=== PATIENT | female | born 1950 | race Caucasian/White ===

== ENCOUNTER → 2021-11-02 | Outpatient (CLI) | payer MEDICARE, OTHER | END | disposition home or self-care (01) | LOC: CPPFTMAIN 13:31 | PROVIDERS: ATTEND Family Medicine | DX: R06.00 Dyspnea, unspecified (principal) | CPT/HCPCS: 94060; 94726; 94729 ==

== ENCOUNTER → 2022-01-06 | Outpatient (CLI) | payer MEDICARE, OTHER ==
--- NOTE | 2022-01-06 11:55 | BD ---
EXAMINATION TYPE: Axial Bone Density DATE OF EXAM: 01/06/2022 COMPARISON: NONE CLINICAL HISTORY: 71 year old Female. ICD-10 CODE: Z13.820 screening osteoporosis Height: 62 Weight: 240.1 FRAX RISK QUESTIONS: Alcohol (3 or more units per day): no Family History (Parent hip fracture): no Glucocorticoids (More than 3mos): no (Ex: prednisone, prednisolone, methylprednisolone, dexamethasone, and hydrocortisone). History of Fracture in Adulthood: no Secondary Osteoporosis: 1. Type 1 Diabetes: no 2. Hyperthyroidism: no 3. Menopause before 45: yes 4. Malnutrition: no 5. Chronic liver disease: no Rheumatoid Arthritis: no Current Tobacco Use: yes RISK FACTORS HISTORY OF: Surgery to Spine/Hip(right/left)/Wrist (right/left): no Family History of Osteoporosis: no Active: no Diet low in dairy products/other sources of calcium: yes Postmenopausal woman: yes Lost more than 2 inches in height since high school: no MEDICATIONS: Additional History: EXAM MEASUREMENTS: Bone mineral densitometry was performed using the [employer]AR[employer] System. Bone mineral density as measured about the Lumbar spine is: ----- L1-L4(G/cm2): 1.289 T Score Values are as follows: ----- L1: 0.8 ----- L2: 0.3 ----- L3: 0.2 ----- L4: 1.8 ----- L1-L4: 0.9 Bone mineral density : baseline Bone mineral density about the R hip (g/cm2): 0.880 Bone mineral density about the L hip (g/cm2): 0.877 T Score values are as follows: -----R Neck: -1.1 -----L Neck: -1.2 -----R Total: 0.2 -----L Total: 0.1 Bone mineral density : baseline FRAX%s: The graph provided illustrates a 7.9% chance for a major osteoporotic fx and a 1.4% chance fo r the hips probability for fx in 10 years time. IMPRESSION: Osteopenia (T Score between -2.5 and -1). There is slightly increased risk of fracture and the patient may be considered for treatment. Re-Screen 2-5 years. NOTE: T-SCORE=SD OF THE YOUNG ADULT MEAN.
== END | disposition home or self-care (01) ==
LOC: RADBDWWP 10:49
PROVIDERS: ATTEND Family Medicine
DX: M85.80 Other specified disorders of bone density and structure, unspecified site (principal)
CPT/HCPCS: 77080

== ENCOUNTER 2022-05-03 17:06 | Inpatient (IN) | payer MEDICARE, OTHER ==
[2022-05-03] MEDS ORDERED: IPRATROPIUM-ALBUTEROL 3 ML NEB INHALATION STA (17:11)
[2022-05-03] MEDS ORDERED: methylPREDNISolone SOD SUCCI 125 MG/2 ML VIAL IV STA (17:11)
[2022-05-03] MEDS: MAGNESIUM SULFATE-D5W PMX 1 GM in DEXTROSE/WATER 1 100ML.BAG IVPB SCH ×2 (17:25→19:38)
[2022-05-03] MEDS ORDERED: DILTIAZEM 5 MG/ML 5 ML VIAL IVP STA (18:38)
[2022-05-03 18:39] LABS: Basophils % (A) 1 %; Eosinophils % (A) 0 %; HCT 51.7 % (34.0-46.0); HGB 17.4 gm/dL (11.4-16.0); Lymphocytes # (A) 0.8 k/uL (1.0-4.8); Lymphocytes % (A) 11 %; MCH 32.6 pg (25.0-35.0); MCHC 33.7 g/dL (31.0-37.0); MCV 96.6 fL (80.0-100.0); Mean Platelet Volume 9.3; Monocytes # (A) 0.4 k/uL (0-1.0); Monocytes % (A) 6 %; Neutrophils # (A) 5.5 k/uL (1.3-7.7); Neutrophils % (A) 80 %; Platelet Count 152 k/uL (150-450); RBC 5.35 m/uL (3.80-5.40); RDW 13.5 % (11.5-15.5); WBC 6.9 k/uL (3.8-10.6)
[2022-05-03] MEDS ORDERED: DILTIAZEM 125 MG in SODIUM CHLORIDE 0.9% 100 ML IV SCH (18:45)
[2022-05-03 19:01] LABS: INR 1.1 (<1.2); Partial Thromboplastin Time 26.7 sec (22.0-30.0); Prothrombin Time 11.4 sec (9.0-12.0)
--- NOTE | 2022-05-03 19:23 | XR ---
EXAMINATION TYPE: XR chest 1V portable DATE OF EXAM: 05/03/2022 7:08 PM COMPARISON: None TECHNIQUE: XR chest 1V portable Frontal view of the chest. CLINICAL INDICATION:Female, 71 years old with history of sob; FINDINGS: Lungs/Pleura: There is no evidence of pleural effusion, focal consolidation, or pneumothorax. Pulmonary vascularity: Unremarkable. Heart/mediastinum: Cardiomediastinal silhouette is prominent in size. Musculoskeletal: No acute osseous pathology. IMPRESSION: Right lower lobe airspace opacities could represent atelectasis versus developing pneumonia. Clinical correlation advised..
[2022-05-03 20:04] LABS: Albumin 3.9 g/dL (3.5-5.0); Calcium 8.8 mg/dL (8.4-10.2); Total Bilirubin 0.7 mg/dL (0.2-1.3)
[2022-05-03 20:06] LABS: Potassium 4.4 mmol/L (3.5-5.1)
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
[2022-05-03] MEDS ORDERED: NALOXONE 0.4 MG/ML 1 ML VIAL IVP PRN (20:35)
[2022-05-03] MEDS ORDERED: ACETAMINOPHEN TAB 325 MG TAB PO PRN (20:35)
[2022-05-03] MEDS ORDERED: ASPIRIN 81 MG PO STA (20:40)
[2022-05-03] MEDS ORDERED: AZITHROMYCIN 500 MG in SODIUM CHLORIDE 0.9% 250 ML IVPB STA (20:45)
[2022-05-03] MEDS: METOPROLOL SUCCINATE (ER) 25 MG TAB.ER.24H PO SCH (21:06)
[2022-05-03] MEDS: APIXABAN 5 MG TAB PO SCH (22:17)
[2022-05-03] MEDS: ATORVASTATIN 20 MG TAB PO SCH (22:19)
[2022-05-03] MEDS: IPRATROPIUM-ALBUTEROL 3 ML NEB INHALATION SCH (23:35)
[2022-05-04] MEDS: methylPREDNISolone SOD SUCCI 125 MG/2 ML VIAL IV SCH ×5 (00:30→23:08)
[2022-05-04] MEDS: IPRATROPIUM-ALBUTEROL 3 ML NEB INHALATION SCH ×6 (02:36→23:46)
[2022-05-04] MEDS: APIXABAN 5 MG TAB PO SCH ×2 (08:24→20:33)
[2022-05-04] MEDS: METOPROLOL SUCCINATE (ER) 50 MG TAB.ER.24H PO SCH (08:24)
[2022-05-04] MEDS ORDERED: ASPIRIN 325 MG TAB PO SCH (09:00)
[2022-05-04] MEDS ORDERED: amLODIPine 5 MG TAB PO SCH (09:00)
[2022-05-04] MEDS ORDERED: FUROSEMIDE 40 MG TAB PO SCH (09:00)
[2022-05-04] MEDS ORDERED: lisinopriL 20 MG TAB PO SCH (09:00)
[2022-05-04 10:53] LABS: Chol/HDL Ratio 2.72 Ratio; LDL Cholesterol,Calculated 53.1 mg/dL (0.0-131.0); VLDL Calculation 12.74 mg/dL (5.00-40.00)
--- NOTE | 2022-05-04 11:20 | P.CRDCN ---
History of Present Illness History of present illness: HISTORY OF PRESENT ILLNESS: This is a 71-year-old female with a past medical history significant for COPD, hypertension, hyperlipidemia, and atrial fibrillation. Patient follows with a Dr. Calzada in [place]. We have been asked to see the patient in consultation for A. fib with RVR. Patient examined at the bedside. Patient presented to the hospital the chief complaint of shortness of breath. She is admitted to the hospital secondary to COPD exacerbation. Upon admission, the patient was found to be in A. fib with RVR. The patient was placed on a IV Cardizem drip. This morning the patient remains in atrial fibrillation with controlled ventricular rates. Her Cardizem drip has been discontinued. She denies chest pain or pressure. She continues to report shortness of breath this morning. * EKG reveals A. fib with RVR * Chest xray right lower lobe airspace opacities could represent atelectasis versus developing pneumonia. * Laboratory data: WBC 6.9. Hemoglobin 17.4. Platelet count 152. Indium 141. Potassium 4.4. BUN 20. Creatinine 1.21. Troponin 0.074. 0.073. 0.047. ProBNP 496. * Current home cardiac medications include Eliquis 5mg BID, Lasix 40 mg daily, amlodipine 5 mg daily, metoprolol succinate 50 mg in the morning and 25 mg at night, lisinopril 40 mg daily, and simvastatin 40mg at HS REVIEW OF SYSTEMS: At the time of my exam: CONSTITUTIONAL: Denies fever or chills. HEENT: Denies blurred vision, vision changes, or eye pain. Denies hemoptysis CARDIOVASCULAR: Denies chest pain. Denies orthopnea. Denies PND. Denies palpitations RESPIRATORY: Denies shortness of breath. GASTROINTESTINAL: Denies abdominal pain. Denies nausea or vomiting. HEMATOLOGIC: Denies bleeding disorders. GENITOURINARY: Denies any blood in urine. SKIN: Denies pruitis. Denies rash. PHYSICAL EXAM: VITAL SIGNS: Reviewed. GENERAL: Well-developed in no acute distress. HEENT: Head is normocephalic. Pupils are equal, round. Sclerae anicteric. Mucous membranes of the mouth are moist. Neck supple. No JVD or thyromegaly LUNGS: Respirations even and unlabored. Lungs diminished with mild expiratory wheezing HEART: Irregular rate and rhythm. S1 and S2 heard. ABDOMEN: Soft. Nondistended. Nontender. EXTREMITIES: Normal range of motion. No clubbing or cyanosis. Peripheral pulses intact. No lower extremity edema NEUROLOGIC: Awake and alert. Oriented x 3. ASSESSMENT: Shortness of breath Acute COPD exacerbation Atrial fibrillation with RVR, unclear if paroxysmal or persistent, suspect persistent Hypertension Hyperlipidemia Nicotine dependence PLAN: Obtain 2-D echo to assess cardiac structure and function Resume home cardiac medications Discontinue IV Cardizem Continue telemetry monitoring Further recommendations pending patient's course Nurse practitioner note has been reviewed by physician. Signing provider agrees with the documented findings, assessment, and plan of care. Past Medical History Past Medical History: Atrial Fibrillation, COPD, Hyperlipidemia, Hypertension History of Any Multi-Drug Resistant Organisms: None Reported Past Surgical History: Tubal Ligation Past Anesthesia/Blood Transfusion Reactions: No Reported Reaction Past Psychological History: No Psychological Hx Reported Smoking Status: Current every day smoker Past Alcohol Use History: None Reported - Past Family History Father Family Medical History: Cancer Mother Family Medical History: Coronary Artery Disease (CAD), CVA/TIA Medications and Allergies Home Medications Medication Instructions Recorded Confirmed Type Albuterol Sulfate [Ventolin HFA] 2 puff INHALATION RT-Q4H PRN 05/03/22 05/03/22 History Apixaban [Eliquis] 5 mg PO BID 05/03/22 05/03/22 History Furosemide [Lasix] 40 mg PO DAILY 05/03/22 05/03/22 History Metoprolol Succinate (ER) [Toprol 50 mg PO DAILY 05/03/22 05/03/22 History Xl] Metoprolol Succinate [Metoprolol 25 mg PO HS 05/03/22 05/03/22 History Succinate ER] Simvastatin [Zocor] 40 mg PO HS 05/03/22 05/03/22 History amLODIPine [Norvasc] 5 mg PO DAILY 05/03/22 05/03/22 History lisinopriL 40 mg PO DAILY 05/03/22 05/03/22 History Allergies Allergy/AdvReac Type Severity Reaction Status Date / Time fenofibrate Allergy Unknown Verified 05/03/22 17:42 Physical Exam Vitals: Vital Signs Temp Pulse Pulse Pulse Resp BP BP 05/04/22 08:20 98.2 F 95 20 116/70 05/04/22 03:17 98 F 67 18 05/04/22 02:48 82 05/04/22 02:39 70 05/04/22 00:59 78 26 H 05/03/22 23:50 76 05/03/22 23:38 69 05/03/22 22:41 97.8 F 84 25 H 05/03/22 21:53 05/03/22 21:51 05/03/22 21:25 05/03/22 21:18 93 20 90/45 05/03/22 20:46 95 20 105/45 05/03/22 19:39 05/03/22 19:36 107 H 20 104/45 05/03/22 17:50 135 H 35 H 05/03/22 17:40 130 H 33 H 91/67 05/03/22 17:37 125 H 29 H 05/03/22 17:30 124 H 29 H 05/03/22 17:22 124 H 21 05/03/22 17:20 130/88 05/03/22 17:19 05/03/22 17:15 05/03/22 17:14 05/03/22 17:13 98.2 F 129 H 32 H 130/88 Pulse Ox FiO2 05/04/22 08:20 96 05/04/22 03:17 95 40 05/04/22 02:48 05/04/22 02:39 40 05/04/22 00:59 05/03/22 23:50 05/03/22 23:38 55 05/03/22 22:41 97 60 05/03/22 21:53 97 60 05/03/22 21:51 60 05/03/22 21:25 70 05/03/22 21:18 96 05/03/22 20:46 98 05/03/22 19:39 100 05/03/22 19:36 99 05/03/22 17:50 98 05/03/22 17:40 97 05/03/22 17:37 05/03/22 17:30 05/03/22 17:22 05/03/22 17:20 96 05/03/22 17:19 100 05/03/22 17:15 86 L 05/03/22 17:14 100 05/03/22 17:13 86 L Intake and Output 05/03/22 05/04/22 05/04/22 22:59 06:59 14:59 Intake Total 55 250 Balance 55 250 Intake: Intake, IV Titration 55 250 Amount Azithromycin 500 mg In 250 Sodium Chloride 0.9% 250 ml @ 250 mls/hr IVPB HS [facility] Rx#:[id number] Diltiazem 125 mg In 5 Sodium Chloride 0.9% 100 ml @ Per Protocol IV .Q0M [facility] Rx#:[id number] cefTRIAXone 1 gm In 50 Sodium Chloride 0.9% 50 ml @ 100 mls/hr IVPB DAILY [facility] Rx#:[id number] Other: # Voids 1 Weight 108.862 kg Results 05/03/22 18:25 05/03/22 18:58 Cardiac Enzymes 05/03/22 05/03/22 05/03/22 Range/Units 18:58 18:58 22:41 AST 62 H (14-36) U/L Troponin I 0.074 H* 0.073 H* (0.000-0.034) ng/mL 05/04/22 Range/Units 02:33 AST (14-36) U/L Troponin I 0.047 H* (0.000-0.034) ng/mL Coagulation 05/03/22 Range/Units 18:25 PT 11.4 (9.0-12.0) sec APTT 26.7 (22.0-30.0) sec CBC 05/03/22 Range/Units 18:25 WBC 6.9 (3.8-10.6) k/uL RBC 5.35 (3.80-5.40) m/uL Hgb 17.4 H (11.4-16.0) gm/dL Hct 51.7 H (34.0-46.0) % Plt Count 152 (150-450) k/uL Comprehensive Metabolic Panel 05/03/22 Range/Units 18:58 Sodium 141 (137-145) mmol/L Potassium 4.4 (3.5-5.1) mmol/L Chloride 108 H (98-107) mmol/L Carbon Dioxide 22 (22-30) mmol/L BUN 20 H (7-17) mg/dL Creatinine 1.21 H (0.52-1.04) mg/dL Glucose 129 H (74-99) mg/dL Calcium 8.8 (8.4-10.2) mg/dL AST 62 H (14-36) U/L ALT 55 H (4-34) U/L Alkaline Phosphatase 78 (38-126) U/L Total Protein 7.0 (6.3-8.2) g/dL Albumin 3.9 (3.5-5.0) g/dL Current Medications Generic Name Dose Route Start Last Admin Trade Name Freq PRN Reason Stop Dose Admin Acetaminophen 650 mg 05/03/22 20:35 Acetaminophen Tab 325 Mg Tab PO Q4HR PRN Mild Pain or Fever > 100.5 Albuterol/Ipratropium 3 ml 05/04/22 00:00 05/04/22 02:36 Ipratropium-Albuterol 3 Ml Neb INHALATION 3 ml RT-Q4H [facility] Administration Amlodipine Besylate 5 mg 05/04/22 09:00 05/04/22 08:24 Amlodipine 5 Mg Tab PO 5 mg DAILY [facility] Administration Apixaban 5 mg 05/03/22 21:00 05/04/22 08:24 Apixaban 5 Mg Tab PO 5 mg BID [facility] Administration Protocol Aspirin 325 mg 05/04/22 09:00 05/04/22 08:24 Aspirin 325 Mg Tab PO 325 mg DAILY [facility] Administration Atorvastatin Calcium 20 mg 05/03/22 21:00 05/03/22 22:19 Atorvastatin 20 Mg Tab PO 20 mg HS [facility] Administration Furosemide 40 mg 05/04/22 09:00 05/04/22 08:24 Furosemide 40 Mg Tab PO 40 mg DAILY [facility] Administration Diltiazem HCl 125 mg/ Sodium 125 mls @ 0 mls/hr 05/03/22 18:45 05/03/22 20:24 Chloride IV 5 ml/hr .Q0M [facility] 5 mls/hr Administration Protocol Per Protocol Azithromycin 500 mg/ Sodium 250 mls @ 250 mls/hr 05/04/22 21:00 Chloride IVPB 05/05/22 21:59 HS [facility] Protocol Ceftriaxone Sodium 1 gm/ 50 mls @ 100 mls/hr 05/04/22 09:00 05/04/22 08:25 Sodium Chloride IVPB 100 mls/hr DAILY [facility] Administration Protocol Lisinopril 40 mg 05/04/22 09:00 05/04/22 08:24 Lisinopril 20 Mg Tab PO 40 mg DAILY [facility] Administration Methylprednisolone Sodium Succinate 60 mg 05/04/22 00:00 05/04/22 06:16 Methylprednisolone Sod Succi 125 Mg/2 Ml Vial IV 60 mg Q6HR [facility] Administration Metoprolol Succinate 25 mg 05/03/22 21:00 05/03/22 21:06 Metoprolol Succinate (Er) 25 Mg Tab.Er.24h PO Not Given HS [facility] Metoprolol Succinate 50 mg 05/04/22 09:00 05/04/22 08:24 Metoprolol Succinate (Er) 50 Mg Tab.Er.24h PO 50 mg DAILY [facility] Administration Naloxone HCl 0.2 mg 05/03/22 20:35 Naloxone 0.4 Mg/Ml 1 Ml Vial IVP Q2M PRN Opioid Reversal Intake and Output 05/03/22 05/04/22 05/04/22 22:59 06:59 14:59 Intake Total 55 250 Balance 55 250 Intake: Intake, IV Titration 55 250 Amount Azithromycin 500 mg In 250 Sodium Chloride 0.9% 250 ml @ 250 mls/hr IVPB HS [facility] Rx#:[id number] Diltiazem 125 mg In 5 Sodium Chloride 0.9% 100 ml @ Per Protocol IV .Q0M [facility] Rx#:[id number] cefTRIAXone 1 gm In 50 Sodium Chloride 0.9% 50 ml @ 100 mls/hr IVPB DAILY [facility] Rx#:[id number] Other: # Voids 1 Weight 108.862 kg 05/03/22 18:25 05/03/22 18:58
--- NOTE | 2022-05-04 11:51 | P.HPIM ---
History of Present Illness 71-year-old pleasant female came in with compensative shortness of breath patient was on BiPAP last night patient's symptoms improved quite a bit patient on IV steroids at this time patient was evaluated by pulmonology. Patient has mildly elevated troponins patient also went into atrial fibrillation patient probably has persistent atrial fibrillation patient is presently rate controlled was on Cardizem which was discontinued and patient is presently on metoprolol. Patient is also on elect was for anticoagulation. Patient is presently in aspirin and Lanoxin usually doesn't use any oxygen at home can use to smoke little bit less than a pack of cigarettes per day patient spoke [employer] is negative chest x-ray did show some nonspecific infiltrates but not consistent with pneumonia. Patient complaining of cough without any significant sputum production. REVIEW OF SYSTEMS: CONSTITUTIONAL: No fever, no malaise, no fatigue. HEENT: No recent visual problems or hearing problems. Denied any sore throat. CARDIOVASCULAR: No chest pain, orthopnea, PND, no palpitations, no syncope. PULMONARY: no hemoptysis. GASTROINTESTINAL: No diarrhea, no nausea, no vomiting, no abdominal pain. NEUROLOGICAL: No headaches, no weakness, no numbness. HEMATOLOGICAL: Denies any bleeding or petechiae. GENITOURINARY: Denies any burning micturition, frequency, or urgency. MUSCULOSKELETAL/RHEUMATOLOGICAL: Denies any joint pain, swelling, or any muscle pain. ENDOCRINE: Denies any polyuria or polydipsia. The rest of the 14-point review of systems is negative. PHYSICAL EXAMINATION: GENERAL: The patient is alert and oriented x3, not in any acute distress. Well developed, well nourished. HEENT: Pupils are round and equally reacting to light. EOMI. No scleral icterus. No conjunctival pallor. Normocephalic, atraumatic. No pharyngeal erythema. No thyromegaly. CARDIOVASCULAR: S1 and S2 present. No murmurs, rubs, or gallops. PULMONARY: Diminished air entry with mild expiratory wheezing ABDOMEN: Soft, nontender, nondistended, normoactive bowel sounds. No palpable organomegaly. MUSCULOSKELETAL: No joint swelling or deformity. EXTREMITIES: No cyanosis, clubbing, or pedal edema. NEUROLOGICAL: Gross neurological examination did not reveal any focal deficits. SKIN: No rashes. Assessment and plan -Acute hypoxic and hypercapnic respiratory failure secondary to exacerbation patient is on nasal cannula oxygen at this time patient will continue on azithromycin but will discontinue Rocephin as there is no evidence of pneumonia pro calcitonin is within normal limits and not consistent with bacterial pneumonia. Patient with systemic strides and inhalational treatments. -Atrial fibrillation with rapid unclear rate presently rate controlled continues to be in A. fib patient probably has persistent A. fib continue with her metoprolol and anticoagulation -Mildly elevated troponin secondary to atrial fibrillation COPD exacerbation -Possible acute renal failure secondary to diuretics which will be held today. -Hyperlipidemia -Hypertension - DVT prophylaxis: Patient on anticoagulation Past Medical History Past Medical History: Atrial Fibrillation, COPD, Hyperlipidemia, Hypertension History of Any Multi-Drug Resistant Organisms: None Reported Past Surgical History: Tubal Ligation Past Anesthesia/Blood Transfusion Reactions: No Reported Reaction Past Psychological History: No Psychological Hx Reported Smoking Status: Current every day smoker Past Alcohol Use History: None Reported - Past Family History Father Family Medical History: Cancer Mother Family Medical History: Coronary Artery Disease (CAD), CVA/TIA Medications and Allergies Home Medications Medication Instructions Recorded Confirmed Type Albuterol Sulfate [Ventolin HFA] 2 puff INHALATION RT-Q4H PRN 05/03/22 05/03/22 History Apixaban [Eliquis] 5 mg PO BID 05/03/22 05/03/22 History Furosemide [Lasix] 40 mg PO DAILY 05/03/22 05/03/22 History Metoprolol Succinate (ER) [Toprol 50 mg PO DAILY 05/03/22 05/03/22 History Xl] Metoprolol Succinate [Metoprolol 25 mg PO HS 05/03/22 05/03/22 History Succinate ER] Simvastatin [Zocor] 40 mg PO HS 05/03/22 05/03/22 History amLODIPine [Norvasc] 5 mg PO DAILY 05/03/22 05/03/22 History lisinopriL 40 mg PO DAILY 05/03/22 05/03/22 History Allergies Allergy/AdvReac Type Severity Reaction Status Date / Time fenofibrate Allergy Unknown Verified 05/03/22 17:42 Physical Exam Vitals: Vital Signs Temp Pulse Pulse Pulse Resp BP BP 05/04/22 09:10 88 22 05/04/22 09:02 88 22 05/04/22 08:20 98.2 F 95 22 116/70 05/04/22 03:17 98 F 67 18 05/04/22 02:48 82 05/04/22 02:39 70 05/04/22 00:59 78 26 H 05/03/22 23:50 76 05/03/22 23:38 69 05/03/22 22:41 97.8 F 84 25 H 05/03/22 21:53 05/03/22 21:51 05/03/22 21:25 05/03/22 21:18 93 20 90/45 05/03/22 20:46 95 20 105/45 05/03/22 19:39 05/03/22 19:36 107 H 20 104/45 05/03/22 17:50 135 H 35 H 05/03/22 17:40 130 H 33 H 91/67 05/03/22 17:37 125 H 29 H 05/03/22 17:30 124 H 29 H 05/03/22 17:22 124 H 21 05/03/22 17:20 130/88 05/03/22 17:19 05/03/22 17:15 05/03/22 17:14 05/03/22 17:13 98.2 F 129 H 32 H 130/88 Pulse Ox FiO2 05/04/22 09:10 05/04/22 09:02 40 05/04/22 08:20 96 05/04/22 03:17 95 40 05/04/22 02:48 05/04/22 02:39 40 05/04/22 00:59 05/03/22 23:50 05/03/22 23:38 55 05/03/22 22:41 97 60 05/03/22 21:53 97 60 05/03/22 21:51 60 05/03/22 21:25 70 05/03/22 21:18 96 05/03/22 20:46 98 05/03/22 19:39 100 05/03/22 19:36 99 05/03/22 17:50 98 05/03/22 17:40 97 05/03/22 17:37 05/03/22 17:30 05/03/22 17:22 05/03/22 17:20 96 05/03/22 17:19 100 05/03/22 17:15 86 L 05/03/22 17:14 100 05/03/22 17:13 86 L Intake and Output 05/03/22 05/04/22 05/04/22 22:59 06:59 14:59 Intake Total 55 250 240 Balance 55 250 240 Intake: Intake, IV Titration 55 250 Amount Azithromycin 500 mg In 250 Sodium Chloride 0.9% 250 ml @ 250 mls/hr IVPB HS RAVINDRA Rx#:[id number] Diltiazem 125 mg In 5 Sodium Chloride 0.9% 100 ml @ Per Protocol IV .Q0M RAVINDRA Rx#:[id number] cefTRIAXone 1 gm In 50 Sodium Chloride 0.9% 50 ml @ 100 mls/hr IVPB DAILY RAVINDRA Rx#:[id number] Oral 240 Other: Voiding Method Bedside Commode # Voids 1 1 Weight 108.862 kg Results CBC & Chem 7: 05/03/22 18:25 05/03/22 18:58 Labs: Abnormal Lab Results - Last 24 Hours (Table) 05/03/22 05/03/22 05/03/22 Range/Units 18:25 18:58 18:58 Hgb 17.4 H (11.4-16.0) gm/dL Hct 51.7 H (34.0-46.0) % Lymphocytes # 0.8 L (1.0-4.8) k/uL Chloride 108 H (98-107) mmol/L BUN 20 H (7-17) mg/dL Creatinine 1.21 H (0.52-1.04) mg/dL Glucose 129 H (74-99) mg/dL AST 62 H (14-36) U/L ALT 55 H (4-34) U/L Troponin I 0.074 H* (0.000-0.034) ng/mL HDL Cholesterol (40.00-60.00) mg/dL Procalcitonin (0.02-0.09) ng/mL 05/03/22 05/03/22 05/04/22 Range/Units 20:36 22:41 02:33 Hgb (11.4-16.0) gm/dL Hct (34.0-46.0) % Lymphocytes # (1.0-4.8) k/uL Chloride (98-107) mmol/L BUN (7-17) mg/dL Creatinine (0.52-1.04) mg/dL Glucose (74-99) mg/dL AST (14-36) U/L ALT (4-34) U/L Troponin I 0.073 H* 0.047 H* (0.000-0.034) ng/mL HDL Cholesterol (40.00-60.00) mg/dL Procalcitonin 0.14 H (0.02-0.09) ng/mL 05/04/22 Range/Units 02:33 Hgb (11.4-16.0) gm/dL Hct (34.0-46.0) % Lymphocytes # (1.0-4.8) k/uL Chloride (98-107) mmol/L BUN (7-17) mg/dL Creatinine (0.52-1.04) mg/dL Glucose (74-99) mg/dL AST (14-36) U/L ALT (4-34) U/L Troponin I (0.000-0.034) ng/mL HDL Cholesterol 38.20 L (40.00-60.00) mg/dL Procalcitonin (0.02-0.09) ng/mL Thrombosis Risk Factor Assmnt - Choose All That Apply Any of the Below Risk Factors Present?: Yes Each Factor Represents 1 point: Abnormal pulmonary function (COPD), Obesity (BMI >25), Serious lung disease incl. pneumonia (< 1month) Other Risk Factors: Yes Each Risk Factor Represents 2 Points: Age 61-74 years, Patient confined to bed Other congenital or acquired thrombophilia - If yes, enter type in comment: No Thrombosis Risk Factor Assessment Total Risk Factor Score: 7 Thrombosis Risk Factor Assessment Level: High Risk
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
[2022-05-04] MEDS: NICOTINE 14MG/24HR PATCH TRANSDERM SCH (17:56)
[2022-05-04] MEDS: SYMBICORT 160-4.5 MCG INHALER INHALATION SCH (20:16)
[2022-05-04] MEDS: METOPROLOL SUCCINATE (ER) 25 MG TAB.ER.24H PO SCH (20:32)
[2022-05-04] MEDS: AZITHROMYCIN 500 MG in SODIUM CHLORIDE 0.9% 250 ML IVPB SCH (20:33)
[2022-05-04] MEDS: ATORVASTATIN 20 MG TAB PO SCH (20:33)
[2022-05-05] MEDS: IPRATROPIUM-ALBUTEROL 3 ML NEB INHALATION SCH ×5 (03:33→20:17)
[2022-05-05] MEDS: methylPREDNISolone SOD SUCCI 125 MG/2 ML VIAL IV SCH ×4 (05:54→23:19)
[2022-05-05] MEDS: SYMBICORT 160-4.5 MCG INHALER INHALATION SCH ×2 (07:54→20:18)
[2022-05-05 08:59] LABS: HGB 15.9 gm/dL (11.4-16.0); MCH 31.4 pg (25.0-35.0); MCHC 32.4 g/dL (31.0-37.0); MCV 96.9 fL (80.0-100.0); Mean Platelet Volume 7.8; Platelet Count 173 k/uL (150-450); RBC 5.05 m/uL (3.80-5.40); RDW 13.4 % (11.5-15.5); WBC 12.3 k/uL (3.8-10.6)
[2022-05-05] MEDS: lisinopriL 10 MG TAB PO SCH (09:08)
[2022-05-05] MEDS: APIXABAN 5 MG TAB PO SCH ×2 (09:08→19:42)
[2022-05-05] MEDS: NICOTINE 14MG/24HR PATCH TRANSDERM SCH (09:08)
[2022-05-05] MEDS: METOPROLOL SUCCINATE (ER) 50 MG TAB.ER.24H PO SCH (09:08)
[2022-05-05 09:37] LABS: Potassium 4.5 mmol/L (3.5-5.1)
--- NOTE | 2022-05-05 12:24 | XR ---
EXAMINATION TYPE: XR chest 1V portable DATE OF EXAM: 05/05/2022 Comparison: 05/03/2022 Clinical History: 71-year-old female shortness of breath Findings: Heart borderline enlarged. Aorta within normal limits. Mild hyperinflation. Improving aeration in the mid and lower lungs. Some strandy atelectasis remains on the left. Hyperinflation. Hazy densities re lating to body habitus and portable technique. Impression: Borderline heart size and COPD. Improving aeration in the lower lungs. Some strandy atelectasis remai ns on the left.
--- NOTE | 2022-05-05 12:31 | P.PN ---
Subjective Progress Note Date: 05/05/22 HISTORY OF PRESENT ILLNESS: This is a 71-year-old female with a past medical history significant for COPD, hypertension, hyperlipidemia, and atrial fibrillation. Patient follows with a Dr. Calzada in [place]. We have been asked to see the patient in consultation for A. fib with RVR. Patient examined at the bedside. Patient presented to the hospital the chief complaint of shortness of breath. She is admitted to the hospital secondary to COPD exacerbation. Upon admission, the patient was found to be in A. fib with RVR. The patient was placed on a IV Cardizem drip. This m orning the patient remains in atrial fibrillation with controlled ventricular rates. Her Cardizem drip has been discontinued. She denies chest pain or pressure. She continues to report shortness of breath this morning. * EKG reveals A. fib with RVR * Chest xray right lower lobe airspace opacities could represent atelectasis versus developing pneumonia. * Laboratory data: WBC 6.9. Hemoglobin 17.4. Platelet count 152. Indium 141. Potassium 4.4. BUN 20. Creatinine 1.21. Troponin 0.074. 0.073. 0.047. ProBNP 496. * Current home cardiac medications include Eliquis 5mg BID, Lasix 40 mg daily, amlodipine 5 mg daily, metoprolol succinate 50 mg in the morning and 25 mg at night, lisinopril 40 mg daily, and simvastatin 40mg at HS 05/05/2022 Patient examined this morning at the bedside. Patient denies chest pain or pressure. She denies shortness breath. Telemetry reveals atrial fibrillation with controlled ventricular rate. Vital signs are stable. 2-D echo is cu rrently pending. PHYSICAL EXAM: VITAL SIGNS: Reviewed. GENERAL: Well-developed in no acute distress. HEENT: Head is normocephalic. Pupils are equal, round. Sclerae anicteric. Mucous membranes of the mouth are moist. Neck supple. No JVD or thyromegaly LUNGS: Respirations even and unlabored. Lungs diminished with mild expiratory wheezing HEART: Irregular rate and rhythm. S1 and S2 heard. ABDOMEN: Soft. Nondistended. Nontender. EXTREMITIES: Normal range of motion. No clubbing or cyanosis. Peripheral pulses intact. No lower extremity edema NEUROLOGIC: Awake and alert. Oriented x 3. ASSESSMENT: Shortness of breath Acute COPD exacerbation Atrial fibrillation with RVR, unclear if paroxysmal or persistent, suspect persistent Hypertension Hyperlipidemia Nicotine dependence PLAN: 2-D echo ordered. Await results Continue current cardiac medications Continue telemetry monitoring Further recommendations pending patient's course Nurse practitioner note has been reviewed by physician. Signing provider agrees with the documented findings, assessment, and plan of care. Objective - Vital Signs Vital signs: Vital Signs Temp 97.9 F 05/05/22 09:05 Pulse 80 05/05/22 11:18 Resp 24 05/05/22 09:05 BP 115/55 05/05/22 09:05 Pulse Ox 91 L 05/05/22 09:05 FiO2 40 05/05/22 03:32 Intake & Output 05/04/22 05/05/22 05/05/22 18:59 06:59 18:59 Intake Total 1026 250 Balance 1026 250 Intake: Intake, IV Titration 50 250 Amount Azithromycin 500 mg In 250 Sodium Chloride 0.9% 250 ml @ 250 mls/hr IVPB HS [facility] Rx#:[id number] cefTRIAXone 1 gm In 50 Sodium Chloride 0.9% 50 ml @ 100 mls/hr IVPB DAILY [facility]IN[facility] Rx#:[id number] Oral 976 Other: Voiding Method Bedside Commode Bedside Commode Bedside Commode # Voids 1 1 1 # Bowel Movements 1 - Labs CBC & Chem 7: 05/05/22 08:33 05/05/22 08:33 Labs: Abnormal Lab Results - Last 24 Hours (Table) 05/05/22 05/05/22 Range/Units 08:33 08:33 WBC 12.3 H (3.8-10.6) k/uL Hct 49.0 H (34.0-46.0) % Chloride 109 H (98-107) mmol/L BUN 37 H (7-17) mg/dL Glucose 147 H (74-99) mg/dL Microbiology - Last 24 Hours (Table) 05/03/22 18:00 Blood Culture - Preliminary Blood No Growth after 24 hours
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
[2022-05-05 15:45] LABS: ABG Base Excess 0.8 mmol/L; ABG HCO3 26 mmol/L (21-25); ABG Oxygen Saturation 93.6 % (94-97); ABG PCO2 43 mmHg (35-45); ABG PH 7.39 (7.35-7.45); ABG PO2 65 mmHg (83-108); ABG TCO2 27 mmol/L (19-24); Allen Test Performed? Yes
--- NOTE | 2022-05-05 18:20 | P.PN ---
Subjective Progress Note Date: 05/05/22 71-year-old pleasant female came in with compensative shortness of breath patient was on BiPAP last night patient's symptoms improved quite a bit patient on IV steroids at this time patient was evaluated by pulmonology. Patient has mildly elevated troponins patient also went into atrial fibrillation patient probably has persistent atrial fibrillation patient is presently rate controlled was on Cardizem which was discontinued and patient is presently on metoprolol. Patient is also on elect was for anticoagulation. Patient is presently in aspirin and Lanoxin usually doesn't use any oxygen at home can use to smoke little bit less than a pack of cigarettes per day patient spoke Alstrom is negative chest x-ray did show some nonspecific infiltrates but not consistent with pneumonia. Patient complaining of cough without any significant sputum production. 05/05/2022 Patient is seen in follow-up this morning with pulmonary and cardiology following. Patient maintained on 3 L of oxygen via nasal cannula basically for eating only per nursing staff as patient continued hypoxic and extremely dys pneic while off the BiPAP. We'll transition back to BiPAP. Chest x-ray shows stable COPD. Patient also is being weaned off Cardizem with cardiology following recommend telemetry monitoring. Patient is afebrile maintained on empiric antibiotics in the form of Zithromax and also was continued on IV steroids. Patient is extremely dyspneic even while sitting at rest. Patient was significant weakness recommend PT/OT therapy. Review of systems: Constitutional: No reports of fatigue, fever, or chills Cardiovascular: No reports of chest pain or palpitations Respiratory: reports of continued shortness of breath or cough GI: No reports of nausea, vomiting, or diarrhea : No reports of dysuria or retention Neurovascular: reports of generalized weakness All medications have been reviewed PHYSICAL EXAMINATION: GENERAL: The patient is alert and oriented x3, sitting up on 3 L eating appears dyspneic with just sitting. Well developed, well nourished. Morbidly obese HEENT: Pupils are round and equally reacting to light. EOMI. No scleral icterus. No conjunctival pallor. Normocephalic, atraumatic. No pharyngeal erythema. No thyromegaly. CARDIOVASCULAR: S1 and S2 muffled, irregular PULMONARY: Diminished air entry with mild expiratory wheezing and scattered rhonchi noted ABDOMEN: Soft, nontender, nondistended, normoactive bowel sounds. No palpable organomegaly. MUSCULOSKELETAL: No joint swelling or deformity. EXTREMITIES: No cyanosis, clubbing, or pedal edema. NEUROLOGICAL: Gross neurological examination did not reveal any focal deficits. Diffusely weak SKIN: No rashes. Assessment: -Acute hypoxic and hypercapnic respiratory failure secondary to COPD exacerbation requiring BiPAP -Atrial fibrillation with rapid ventricular rate, presently rate controlled continues to be in A. fib patient probably has persistent A. fib -Mildly elevated troponin secondary to atrial fibrillation and COPD exacerbation -Possible acute renal failure secondary to diuretics which will be held today. Improving -Hyperlipidemia -Hypertension -DVT prophylaxis: Patient on anticoagulation Plan: Recommend to continue supplemental oxygen and patient is transitioning from 3 L via nasal cannula while eating although continues to be extremely dyspneic and being transitioned back to BiPAP. Recommend weaning as tolerated. Patient does not normally wear any oxygen in the outpatient setting. Pulmonary following and patient is maintained on IV steroids along with DuoNeb's and chest x-ray reviewed and stable COPD. Patient continued on Zithromax and ceftriaxone has been discontinued. Patient has significant weakness recommend PT/OT therapy once respiratory status is more stable Cardiology following patient is now off IV Cardizem currently rate controlled and anticoagulated Encouraged oral intake and continue to hold diuretics for now with follow-up labs Due to multiple complex medical issues, prognosis is guarded The impression and plan of care has been dictated by Jory Márquez, Nurse Practitioner as directed. Dr. Amalia MD I have performed a history and examination and MDM of this patient, discussed the same with the dictator, and agree with the dictator's assessment and plan as written ,documented as a scribe. Based on total visit time, I have performed more than 50% of the visit. Objective - Vital Signs Vital signs: Vital Signs Temp 97.9 F 05/05/22 09:05 Pulse 74 05/05/22 09:05 Resp 24 05/05/22 09:05 BP 115/55 05/05/22 09:05 Pulse Ox 91 L 05/05/22 09:05 FiO2 40 05/05/22 03:32 Intake & Output 05/04/22 05/05/22 05/05/22 18:59 06:59 18:59 Intake Total 1026 250 Balance 1026 250 Intake: Intake, IV Titration 50 250 Amount Azithromycin 500 mg In 250 Sodium Chloride 0.9% 250 ml @ 250 mls/hr IVPB HS [facility] Rx#:[id number] cefTRIAXone 1 gm In 50 Sodium Chloride 0.9% 50 ml @ 100 mls/hr IVPB DAILY [facility] Rx#:[id number] Oral 976 Other: Voiding Method Bedside Commode Bedside Commode Bedside Commode # Voids 1 1 1 # Bowel Movements 1 - Labs CBC & Chem 7: 05/05/22 08:33 05/05/22 08:33 Labs: Abnormal Lab Results - Last 24 Hours (Table) 05/03/22 05/04/22 05/05/22 Range/Units 20:36 02:33 08:33 WBC 12.3 H (3.8-10.6) k/uL Hct 49.0 H (34.0-46.0) % Chloride (98-107) mmol/L BUN (7-17) mg/dL Glucose (74-99) mg/dL HDL Cholesterol 38.20 L (40.00-60.00) mg/dL Procalcitonin 0.14 H (0.02-0.09) ng/mL 05/05/22 Range/Units 08:33 WBC (3.8-10.6) k/uL Hct (34.0-46.0) % Chloride 109 H (98-107) mmol/L BUN 37 H (7-17) mg/dL Glucose 147 H (74-99) mg/dL HDL Cholesterol (40.00-60.00) mg/dL Procalcitonin (0.02-0.09) ng/mL Microbiology - Last 24 Hours (Table) 05/03/22 18:00 Blood Culture - Preliminary Blood No Growth after 24 hours
[2022-05-05] MEDS: ATORVASTATIN 20 MG TAB PO SCH (19:42)
[2022-05-05] MEDS: AZITHROMYCIN 500 MG in SODIUM CHLORIDE 0.9% 250 ML IVPB SCH (19:42)
[2022-05-05] MEDS: METOPROLOL SUCCINATE (ER) 25 MG TAB.ER.24H PO SCH (19:42)
--- NOTE | 2022-05-05 19:56 | CT ---
EXAMINATION TYPE: CT chest angio for PE CT DLP: 703.6 mGycm, Automated exposure control for dose reduction was used. DATE OF EXAM: 05/05/2022 7:05 PM COMPARISON: None CLINICAL INDICATION:Female, 71 years old with history of increased SOB with exertion; SOB with exerti on TECHNIQUE/CONTRAST: CTA scan of the thorax is performed with IV Contrast, patient injected with 80 mL of Isovue 370, pulm onary embolism protocol. MIP images are created and reviewed these are created on a separate worksta tion.. FINDINGS: Pulmonary Artery: There is no evidence for a filling defect within the pulmonary vasculature to sugge st acute pulmonary embolism. The pulmonary trunk is dilated up to 4.6 cm. Lungs/Pleura: Motion limits evaluation of the lung parenchyma. Scattered streaky scarring/atelectasis . Some patchy right lower lobe airspace opacities are seen bilaterally left greater than right. Atele ctasis along the medial aspect of the right lower lobe. No evidence of focal consolidation, pleural e ffusion or pneumothorax. Airway: A few opacified large airways are seen in the lower lobes bilaterally. Heart: The heart is enlarged for size. Atherosclerosis of the coronary arteries and aortic valve. Vasculature: No evidence of aortic aneurysm. Scattered atherosclerosis of the arterial vasculature. Mediastinum: No gross evidence of adenopathy. Musculoskeletal: No acute osseous abnormalities Soft Tissues: Unremarkable. Lower neck: No significant findings. Upper Abdomen: Diffuse low-attenuation to the liver parenchyma. IMPRESSION: 1. No evidence of pulmonary embolism. 2. Scattered airspace opacities in the lung bases correlate for aspiration/developing pneumonia. 3. Cardiomegaly with evidence of pulmonary hypertension. 4. Hepatic steatosis.
[2022-05-05] MEDS ORDERED: DEXTROSE 50% SYRINGE 50 ML IVP PRN ×2 (23:01)
[2022-05-06] MEDS: IPRATROPIUM-ALBUTEROL 3 ML NEB INHALATION SCH ×6 (00:02→20:20)
[2022-05-06 06:08] LABS: Glucose,Whole Blood 120 mg/dL (70-110)
[2022-05-06] MEDS: methylPREDNISolone SOD SUCCI 125 MG/2 ML VIAL IV SCH ×4 (06:16→23:04)
[2022-05-06] MEDS: INSULIN ASPART (NovoLOG) 100 UNIT/ML VIAL SQ SCH ×4 (06:37→21:03)
[2022-05-06 07:48] LABS: Basophils % (A) 0 %; Eosinophils % (A) 0 %; HCT 48.1 % (34.0-46.0); HGB 15.7 gm/dL (11.4-16.0); Lymphocytes # (A) 0.9 k/uL (1.0-4.8); Lymphocytes % (A) 8 %; MCH 31.5 pg (25.0-35.0); MCHC 32.7 g/dL (31.0-37.0); MCV 96.4 fL (80.0-100.0); Mean Platelet Volume 7.9; Monocytes # (A) 0.4 k/uL (0-1.0); Monocytes % (A) 4 %; Neutrophils # (A) 9.9 k/uL (1.3-7.7); Neutrophils % (A) 87 %; Platelet Count 195 k/uL (150-450); RBC 4.99 m/uL (3.80-5.40); RDW 13.6 % (11.5-15.5); WBC 11.4 k/uL (3.8-10.6)
[2022-05-06 08:06] LABS: Calcium 9.2 mg/dL (8.4-10.2); Potassium 4.6 mmol/L (3.5-5.1)
[2022-05-06] MEDS: SYMBICORT 160-4.5 MCG INHALER INHALATION SCH ×2 (09:07→20:20)
--- NOTE | 2022-05-06 09:40 | P.PN ---
Subjective Progress Note Date: 05/06/22 HISTORY OF PRESENT ILLNESS: This is a 71-year-old female with a past medical history significant for COPD, hypertension, hyperlipidemia, and atrial fibrillation. Patient follows with a Dr. Calzada in [place]. We have been asked to see the patient in consultation for A. fib with RVR. Patient examined at the bedside. Patient presented to the hospital the chief complaint of shortness of breath. She is admitted to the hospital secondary to COPD exacerbation. Upon admission, the patient was found to be in A. fib with RVR. The patient was placed on a IV Cardizem drip. This m orning the patient remains in atrial fibrillation with controlled ventricular rates. Her Cardizem drip has been discontinued. She denies chest pain or pressure. She continues to report shortness of breath this morning. * EKG reveals A. fib with RVR * Chest xray right lower lobe airspace opacities could represent atelectasis versus developing pneumonia. * Laboratory data: WBC 6.9. Hemoglobin 17.4. Platelet count 152. Indium 141. Potassium 4.4. BUN 20. Creatinine 1.21. Troponin 0.074. 0.073. 0.047. ProBNP 496. * Current home cardiac medications include Eliquis 5mg BID, Lasix 40 mg daily, amlodipine 5 mg daily, metoprolol succinate 50 mg in the morning and 25 mg at night, lisinopril 40 mg daily, and simvastatin 40mg at HS 05/05/2022 Patient examined this morning at the bedside. Patient denies chest pain or pressure. She denies shortness breath. Telemetry reveals atrial fibrillation with controlled ventricular rate. Vital signs are stable. 2-D echo is cu rrently pending. 05/06/2022 Patient examined this morning at the bedside. Patient denies chest pain or pressure. She denies shortness breath. Telemetry reveals atrial fibrillation with controlled ventricular rate. Vital signs are stable. 2-D echo is currently pending. PHYSICAL EXAM: VITAL SIGNS: Reviewed. GENERAL: Well-developed in no acute distress. HEENT: Head is normocephalic. Pupils are equal, round. Sclerae anicteric. Mucous membranes of the mouth are moist. Neck supple. No JVD or thyromegaly LUNGS: Respirations even and unlabored. Lungs diminished with mild expiratory wheezing HEART: Irregular rate and rhythm. S1 and S2 heard. ABDOMEN: Soft. Nondistended. Nontender. EXTREMITIES: Normal range of motion. No clubbing or cyanosis. Peripheral pulses intact. No lower extremity edema NEUROLOGIC: Awake and alert. Oriented x 3. ASSESSMENT: Shortness of breath Acute COPD exacerbation Atrial fibrillation with RVR, unclear if paroxysmal or persistent, suspect persistent Hypertension Hyperlipidemia Nicotine dependence PLAN: 2-D echo ordered. Await results Continue current cardiac medications Continue telemetry monitoring Patient is stable from a cardiac standpoint Further recommendations pending patient's course Nurse practitioner note has been reviewed by physician. Signing provider agrees with the documented findings, assessment, and plan of care. Objective - Vital Signs Vital signs: Vital Signs Temp 97.8 F 05/06/22 02:27 Pulse 88 05/06/22 09:21 Resp 25 H 05/06/22 02:27 BP 148/83 05/06/22 02:27 Pulse Ox 94 L 05/06/22 02:27 FiO2 40 05/06/22 09:08 Intake & Output 05/05/22 05/06/22 05/06/22 18:59 06:59 18:59 Intake Total 250 Balance 250 Intake: Intake, IV Titration 250 Amount Azithromycin 500 mg In 250 Sodium Chloride 0.9% 250 ml @ 250 mls/hr IVPB HS [facility] Rx#:[id number] Other: Voiding Method Bedside Commode Bedside Commode # Voids 2 2 # Bowel Movements 1 - Labs CBC & Chem 7: 05/06/22 07:05 05/06/22 07:05 Labs: Abnormal Lab Results - Last 24 Hours (Table) 05/05/22 05/06/22 05/06/22 Range/Units 15:42 06:06 07:05 WBC (3.8-10.6) k/uL Hct (34.0-46.0) % Neutrophils # (1.3-7.7) k/uL Lymphocytes # (1.0-4.8) k/uL ABG pO2 65 L (83-108) mmHg ABG HCO3 26 H (21-25) mmol/L ABG Total CO2 27 H (19-24) mmol/L ABG O2 Saturation 93.6 L (94-97) % Chloride 112 H (98-107) mmol/L BUN 30 H (7-17) mg/dL Glucose 117 H (74-99) mg/dL POC Glucose (mg/dL) 120 H (70-110) mg/dL 05/06/22 Range/Units 07:05 WBC 11.4 H (3.8-10.6) k/uL Hct 48.1 H (34.0-46.0) % Neutrophils # 9.9 H (1.3-7.7) k/uL Lymphocytes # 0.9 L (1.0-4.8) k/uL ABG pO2 (83-108) mmHg ABG HCO3 (21-25) mmol/L ABG Total CO2 (19-24) mmol/L ABG O2 Saturation (94-97) % Chloride (98-107) mmol/L BUN (7-17) mg/dL Glucose (74-99) mg/dL POC Glucose (mg/dL) (70-110) mg/dL Microbiology - Last 24 Hours (Table) 05/03/22 18:00 Blood Culture - Preliminary Blood No Growth after 48 hours
[2022-05-06] MEDS: NICOTINE 14MG/24HR PATCH TRANSDERM SCH (10:21)
[2022-05-06] MEDS: lisinopriL 10 MG TAB PO SCH (10:21)
[2022-05-06] MEDS: APIXABAN 5 MG TAB PO SCH ×2 (10:21→21:02)
[2022-05-06] MEDS: FAMOTIDINE 20 MG/2 ML VIAL IV SCH ×2 (10:22→21:02)
[2022-05-06] MEDS: METOPROLOL SUCCINATE (ER) 50 MG TAB.ER.24H PO SCH (10:22)
--- NOTE | 2022-05-06 10:48 | CA ---
Transthoracic Echo Report Name: Kellie Gill Age: 71 Gender: F : 1950 Exam Date: 05/05/2022 09:52 Exam Location: [place] [facility] Ht (in): 63 Wt (lb): 240 Ordering Physician: João Crowe DO Attending/Referring Phys: [id number], Sebastien Legal Receptionist Denita Man, TYS[place] Procedure CPT: Indications: sob Cardiac Hx: Technical Quality: Contrast 1: Total Dose (mL): Contrast 2: Total Dose (mL): MEASUREMENTS (Male / Female) Normal Values 2D ECHO LA Volume 58.5 cm??? 18 - 58 / 22 - 52 cm??? M-MODE Aortic Root Diameter MM 3.5 cm LA Systolic Diameter MM 4.1 cm LA Ao Ratio MM 1.2 MV E Point Septal Separation 0.2 cm AV Cusp Separation MM 1.5 cm DOPPLER MV Area PHT 4.9 cm??? Mitral E Point Velocity 107.5 cm/s Mitral A Point Velocity 33.9 cm/s Mitral E to A Ratio 3.2 MV Deceleration Time 153.9 ms MV E' Velocity 7.4 cm/s Mitral E to MV E' Ratio 14.4 TR Peak Velocity 279.2 cm/s TR Peak Gradient 31.2 mmHg Right Ventricular Systolic Press 36.2 mmHg FINDINGS Left Ventricle Left ventricular ejection fraction is estimated at 55 %. Left ventricular cavity size normal. Right Ventricle Normal right ventricular size and function. Mild pulmonary hypertension. Right ventricular systolic pressure estimated at 36 mm hg. Right Atrium Normal right atrial size. Left Atrium Mildly increased left atrial volume. Mitral Valve Structurally normal mitral valve. Mild mitral regurgitation. Aortic Valve Trileaflet aortic valve. Aortic valve sclerosis. Tricuspid Valve Structurally normal tricuspid valve. Mild tricuspid regurgitation. Pulmonic Valve Pulmonic valve not well visualized. Pericardium Echo free space anterior to the right ventricle likely represents a fat pad. Aorta Normal size aortic root and proximal ascending aorta. CONCLUSIONS Technically difficult study. Overall normal LV size and systolic function with mild mitral and tricuspid insufficiency. No clearcut pericardial effusion Previewed by: Dr. Zenon Gallardo MD (Electronically Signed) Final Date: 06 May 2022 10:47
[2022-05-06 11:26] LABS: Glucose,Whole Blood 127 mg/dL (70-110)
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
[2022-05-06] MEDS: DOXYCYCLINE 100 MG CAP PO SCH ×2 (12:24→21:02)
[2022-05-06 16:24] LABS: Glucose,Whole Blood 173 mg/dL (70-110)
--- NOTE | 2022-05-06 19:14 | P.PN ---
Subjective Progress Note Date: 05/06/22 71-year-old pleasant female came in with compensative shortness of breath patient was on BiPAP last night patient's symptoms improved quite a bit patient on IV steroids at this time patient was evaluated by pulmonology. Patient has mildly elevated troponins patient also went into atrial fibrillation patient probably has persistent atrial fibrillation patient is presently rate controlled was on Cardizem which was discontinued and patient is presently on metoprolol. Patient is also on elect was for anticoagulation. Patient is presently in aspirin and Lanoxin usually doesn't use any oxygen at home can use to smoke little bit less than a pack of cigarettes per day patient spoke Alsom is negative chest x-ray did show some nonspecific infiltrates but not consistent with pneumonia. Patient complaining of cough without any significant sputum production. 05/05/2022 Patient is seen in follow-up this morning with pulmonary and cardiology following. Patient maintained on 3 L of oxygen via nasal cannula basically for eating only per nursing staff as patient continued hypoxic and extremely dys pneic while off the BiPAP. We'll transition back to BiPAP. Chest x-ray shows stable COPD. Patient also is being weaned off Cardizem with cardiology following recommend telemetry monitoring. Patient is afebrile maintained on empiric antibiotics in the form of Zithromax and also was continued on IV steroids. Patient is extremely dyspneic even while sitting at rest. Patient was significant weakness recommend PT/OT therapy. 05/06/2022 Patient seen in follow-up today with cardiology and pulmonary following. Patient underwent CTA with no evidence of PE and suggestive of early pneumonia. Patient was on ceftriaxone and Zithromax and completed the course and pulmonary recommending oral doxycycline which has been started. Patient also continues on IV steroids continues with significant inspiratory and expiratory wheezing on exam. Patient being followed by cardiology off Cardizem drip currently rate controlled likely persistent atrial fibrillation. 2-D echo shows an EF of 55%. Patient continues to be dyspneic and intermittently using nasal cannula along with BiPAP. Patient spent all night on the BiPAP at 40% FiO2 with PEEP of 5. Patient with significant weakness as well and not much reserve on her respiratory status with minimal exertion. Encouraged increase activity as gallito erated and continued oral intake. Review of systems: Constitutional: No reports of fatigue, fever, or chills Cardiovascular: No reports of chest pain or palpitations Respiratory: reports of continued shortness of breath GI: No reports of nausea, vomiting, or diarrhea : No reports of dysuria or retention Neurovascular: reports of generalized weakness All medications have been reviewed PHYSICAL EXAMINATION: GENERAL: The patient is alert and oriented x3, sitting up on 3 L and less dyspn eic a day although continues to exert with minimal exertion. Well developed, well nourished. Morbidly obese HEENT: Pupils are round and equally reacting to light. EOMI. No scleral icterus. No conjunctival pallor. Normocephalic, atraumatic. No pharyngeal erythema. No thyromegaly. CARDIOVASCULAR: S1 and S2 muffled, irregular PULMONARY: Diminished air entry with mild expiratory wheezing and scattered coarse rhonchi noted ABDOMEN: Soft, nontender, nondistended, normoactive bowel sounds. No palpable organomegaly. MUSCULOSKELETAL: No joint swelling or deformity. EXTREMITIES: No cyanosis, clubbing, or pedal edema. NEUROLOGICAL: Gross neurological examination did not reveal any focal deficits. Diffusely weak SKIN: No rashes. Assessment: -Acute hypoxic and hypercapnic respiratory failure secondary to COPD exacerbation requiring BiPAP -Atrial fibrillation with rapid ventricular rate, presently rate controlled continues to be in A. fib patient probably has persistent A. fib -Mildly elevated troponin secondary to atrial fibrillation and COPD exacerbation -Possible acute renal failure secondary to diuretics. Improving -Hyperlipidemia -Hypertension -DVT prophylaxis: Patient on anticoagulation Plan: Recommend to continue supplemental oxygen and patient is transitioning from 3 L via nasal cannula while eating although continues to be extremely dyspneic and being transitioned back to BiPAP. Recommend weaning as tolerated. Patient does not normally wear any oxygen in the outpatient setting. Pulmonary following and patient is maintained on IV steroids along with DuoNeb's and went CTA which was negative for PE with concerns of pneumonia. Patient did complete Zithromax and ceftriaxone and pulmonary is recommending oral doxycycline. Patient has significant weakness recommend PT/OT therapy Cardiology following patient is now off IV Cardizem currently rate controlled and anticoagulated, 2-D echo shows an EF of 55% Encouraged oral intake and continue to hold diuretics for now with follow-up labs Due to multiple complex medical issues, prognosis is guarded The impression and plan of care has been dictated by Jory Márquez, Nurse Practitioner as directed. Dr. Amalia MD I have performed a history and examination and MDM of this patient, discussed the same with the dictator, and agree with the dictator's assessment and plan as written ,documented as a scribe. Based on total visit time, I have performed more than 50% of the visit. Objective - Vital Signs Vital signs: Vital Signs Temp 97.8 F 05/06/22 02:27 Pulse 72 05/06/22 04:17 Resp 25 H 05/06/22 02:27 BP 148/83 05/06/22 02:27 Pulse Ox 94 L 05/06/22 02:27 FiO2 40 05/06/22 04:06 Intake & Output 05/05/22 05/06/22 05/06/22 18:59 06:59 18:59 Intake Total 250 Balance 250 Intake: Intake, IV Titration 250 Amount Azithromycin 500 mg In 250 Sodium Chloride 0.9% 250 ml @ 250 mls/hr IVPB HS [facility] Rx#:[id number] Other: Voiding Method Bedside Commode Bedside Commode # Voids 2 2 # Bowel Movements 1 - Labs CBC & Chem 7: 05/06/22 07:05 05/06/22 07:05 Labs: Abnormal Lab Results - Last 24 Hours (Table) 05/05/22 05/05/22 05/06/22 Range/Units 08:33 15:42 06:06 WBC (3.8-10.6) k/uL Hct (34.0-46.0) % Neutrophils # (1.3-7.7) k/uL Lymphocytes # (1.0-4.8) k/uL ABG pO2 65 L (83-108) mmHg ABG HCO3 26 H (21-25) mmol/L ABG Total CO2 27 H (19-24) mmol/L ABG O2 Saturation 93.6 L (94-97) % Chloride 109 H (98-107) mmol/L BUN 37 H (7-17) mg/dL Glucose 147 H (74-99) mg/dL POC Glucose (mg/dL) 120 H (70-110) mg/dL 05/06/22 05/06/22 Range/Units 07:05 07:05 WBC 11.4 H (3.8-10.6) k/uL Hct 48.1 H (34.0-46.0) % Neutrophils # 9.9 H (1.3-7.7) k/uL Lymphocytes # 0.9 L (1.0-4.8) k/uL ABG pO2 (83-108) mmHg ABG HCO3 (21-25) mmol/L ABG Total CO2 (19-24) mmol/L ABG O2 Saturation (94-97) % Chloride 112 H (98-107) mmol/L BUN 30 H (7-17) mg/dL Glucose 117 H (74-99) mg/dL POC Glucose (mg/dL) (70-110) mg/dL Microbiology - Last 24 Hours (Table) 05/03/22 18:00 Blood Culture - Preliminary Blood No Growth after 48 hours
[2022-05-06 20:30] LABS: Glucose,Whole Blood 143 mg/dL (70-110)
[2022-05-06] MEDS: ATORVASTATIN 20 MG TAB PO SCH (21:02)
[2022-05-06] MEDS: METOPROLOL SUCCINATE (ER) 25 MG TAB.ER.24H PO SCH (21:02)
[2022-05-07] MEDS: IPRATROPIUM-ALBUTEROL 3 ML NEB INHALATION SCH ×6 (00:46→21:15)
[2022-05-07 06:04] LABS: Glucose,Whole Blood 139 mg/dL (70-110)
[2022-05-07] MEDS: INSULIN ASPART (NovoLOG) 100 UNIT/ML VIAL SQ SCH ×4 (06:19→20:16)
[2022-05-07] MEDS: methylPREDNISolone SOD SUCCI 125 MG/2 ML VIAL IV SCH ×4 (06:26→23:11)
[2022-05-07] MEDS: SYMBICORT 160-4.5 MCG INHALER INHALATION SCH ×2 (07:14→21:15)
[2022-05-07] MEDS: METOPROLOL SUCCINATE (ER) 50 MG TAB.ER.24H PO SCH (08:23)
[2022-05-07] MEDS: APIXABAN 5 MG TAB PO SCH ×2 (08:23→20:23)
[2022-05-07] MEDS: FAMOTIDINE 20 MG/2 ML VIAL IV SCH ×2 (08:23→20:23)
[2022-05-07] MEDS: NICOTINE 14MG/24HR PATCH TRANSDERM SCH (08:23)
[2022-05-07] MEDS: DOXYCYCLINE 100 MG CAP PO SCH ×2 (08:23→20:25)
[2022-05-07] MEDS: lisinopriL 10 MG TAB PO SCH (08:23)
[2022-05-07 11:59] LABS: Glucose,Whole Blood 133 mg/dL (70-110)
--- NOTE | 2022-05-07 12:09 | P.PN ---
Subjective Progress Note Date: 05/07/22 Patient seen today resting comfortably in bed in no signs of acute distress doing well. Denies increased shortness of breath, chest pain or pressure. 2-D echocardiogram shows a normal LV function with mild mitral and tricuspid insufficiency. She remains in atrial fibrillation on the monitor with a cont rolled ventricular rate in the 80s. Objective - Vital Signs Vital signs: Vital Signs Temp 96.8 F L 05/07/22 03:40 Pulse 84 05/07/22 10:43 Resp 20 05/07/22 03:40 BP 158/97 05/07/22 03:40 Pulse Ox 96 05/07/22 03:43 FiO2 40 05/07/22 03:43 Intake & Output 05/06/22 05/07/22 05/07/22 18:59 06:59 18:59 Intake Total 118 Output Total 350 Balance -232 Intake: Oral 118 Output: Urine 350 Other: Voiding Method Bedside Commode Bedside Commode # Voids 2 # Bowel Movements 1 2 - Exam VITAL SIGNS: Reviewed. GENERAL: Well-developed in no acute distress. HEENT: Head is normocephalic. Pupils are equal, round. Sclerae anicteric. Mucous membranes of the mouth are moist. Neck supple. No JVD or thyromegaly LUNGS: Respirations even and unlabored. Lungs diminished with mild expiratory wheezing HEART: Irregular rate and rhythm. S1 and S2 heard. ABDOMEN: Soft. Nondistended. Nontender. EXTREMITIES: Normal range of motion. No clubbing or cyanosis. Peripheral pulses intact. No lower extremity edema NEUROLOGIC: Awake and alert. Oriented x 3. - Labs CBC & Chem 7: 05/06/22 07:05 05/06/22 07:05 Labs: Abnormal Lab Results - Last 24 Hours (Table) 05/06/22 05/06/22 05/07/22 Range/Units 16:23 20:29 06:02 POC Glucose (mg/dL) 173 H 143 H 139 H (70-110) mg/dL 05/07/22 Range/Units 11:48 POC Glucose (mg/dL) 133 H (70-110) mg/dL Microbiology - Last 24 Hours (Table) 05/03/22 18:00 Blood Culture - Preliminary Blood No Growth after 72 hours Assessment and Plan Assessment: Shortness of breath Acute COPD exacerbation Atrial fibrillation with RVR, unclear if paroxysmal or persistent, suspect persistent Hypertension Hyperlipidemia Nicotine dependence Plan: 2-D echo obtained in reviewed Continue current cardiac medications Continue telemetry monitoring Patient is stable from a cardiac standpoint Further recommendations pending patient's course Nurse practitioner note has been reviewed by physician. Signing provider agrees with the documented findings, assessment, and plan of care.
--- NOTE | 2022-05-07 12:29 | P.PN ---
Subjective Progress Note Date: 05/07/22 71-year-old pleasant female came in with compensative shortness of breath patient was on BiPAP last night patient's symptoms improved quite a bit patient on IV steroids at this time patient was evaluated by pulmonology. Patient has mildly elevated troponins patient also went into atrial fibrillation patient probably has persistent atrial fibrillation patient is presently rate controlled was on Cardizem which was discontinued and patient is presently on metoprolol. Patient is also on elect was for anticoagulation. Patient is presently in aspirin and Lanoxin usually doesn't use any oxygen at home can use to smoke little bit less than a pack of cigarettes per day patient spoke Alsom is negative chest x-ray did show some nonspecific infiltrates but not consistent with pneumonia. Patient complaining of cough without any significant sputum production. 05/05/2022 Patient is seen in follow-up this morning with pulmonary and cardiology following. Patient maintained on 3 L of oxygen via nasal cannula basically for eating only per nursing staff as patient continued hypoxic and extremely dysp neic while off the BiPAP. We'll transition back to BiPAP. Chest x-ray shows stable COPD. Patient also is being weaned off Cardizem with cardiology following recommend telemetry monitoring. Patient is afebrile maintained on empiric antibiotics in the form of Zithromax and also was continued on IV steroids. Patient is extremely dyspneic even while sitting at rest. Patient was significant weakness recommend PT/OT therapy. 05/06/2022 Patient seen in follow-up today with cardiology and pulmonary following. Patient underwent CTA with no evidence of PE and suggestive of early pneumonia. Patient was on ceftriaxone and Zithromax and completed the course and pulmonary recommending oral doxycycline which has been started. Patient also continues on IV steroids continues with significant inspiratory and expiratory wheezing on exam. Patient being followed by cardiology off Cardizem drip currently rate controlled likely persistent atrial fibrillation. 2-D echo shows an EF of 55%. Patient continues to be dyspneic and intermittently using nasal cannula along with BiPAP. Patient spent all night on the BiPAP at 40% FiO2 with PEEP of 5. Patient with significant weakness as well and not much reserve on her respiratory status with minimal exertion. Encouraged increase activity as tole rated and continued oral intake. 05/07/2022 Patient evaluated today on stepdown unit. Continues on alternating Bipap with 4L nasal cannula. Continues with weakness and shortness of breath with limited activity. Mostly bedrest. Physical therapy is recommend home with home care versus subacute rehab pending patients improvement. She continues on Iv steroids, and oral doxycycline has been added. Remains afebrile, heart rate in the 80s continues in atrial flutter, blood pressure 158/97, 96% oxygenation while on BiPAP support. Pulmonary and cardiology are following closely. Review of systems: Constitutional: No reports of fatigue, fever, or chills Cardiovascular: No reports of chest pain or palpitations Respiratory: reports of continued shortness of breath GI: No reports of nausea, vomiting, or diarrhea : No reports of dysuria or retention Neurovascular: reports of generalized weakness All medications have been reviewed PHYSICAL EXAMINATION: GENERAL: The patient is alert and oriented x3, sitting up on 3 L and less dyspneic a day although continues to exert with minimal exertion. Well developed, well nourished. Morbidly obese HEENT: Pupils are round and equally reacting to light. EOMI. No scleral icterus. No conjunctival pallor. Normocephalic, atraumatic. No pharyngeal erythema. No thyromegaly. CARDIOVASCULAR: S1 and S2 muffled, irregular PULMONARY: Diminished air entry with mild expiratory wheezing and scattered coarse rhonchi noted ABDOMEN: Soft, nontender, nondistended, normoactive bowel sounds. No palpable organomegaly. MUSCULOSKELETAL: No joint swelling or deformity. EXTREMITIES: No cyanosis, clubbing, or pedal edema. NEUROLOGICAL: Gross neurological examination did not reveal any focal deficits. Diffusely weak SKIN: No rashes. Assessment: -Acute hypoxic and hypercapnic respiratory failure secondary to COPD exacerbation requiring BiPAP -Atrial fibrillation with rapid ventricular rate, presently rate controlled continues to be in A. fib patient probably has persistent A. fib -Mildly elevated troponin secondary to atrial fibrillation and COPD exacerbation -Possible acute renal failure secondary to diuretics. Improving -Hyperlipidemia -Hypertension -DVT prophylaxis: Patient on anticoagulation -GI prophylaxis: pepcid Plan: Recommend to continue supplemental oxygen and patient is transitioning from 3 L via nasal cannula while eating although continues to be extremely dyspneic and being transitioned back to BiPAP. Recommend weaning as tolerated. Patient does not normally wear any oxygen in the outpatient setting. Pulmonary following and patient is maintained on IV steroids along with DuoNeb's and CTA which was negative for PE with concerns of pneumonia. Patient did complete Zithromax and ceftriaxone and pulmonary is recommending oral doxycycline. Patient has significant weakness recommend PT/OT therapy Cardiology following patient is now off IV Cardizem currently rate controlled and anticoagulated, 2-D echo shows an EF of 55% Encouraged oral intake and continue to hold diuretics for now with follow-up labs Due to multiple complex medical issues, prognosis is guarded The impression and plan of care has been dictated by Angela Montemayor, Nurse Practitioner as directed. Dr. Amalia MD I have performed a history and physical examination and medical decision making of this patient, discussed the same with the dictator, and agree with the dictators assessment and plan as written, documented as a scribe. Based on total visit time, I have performed more than 50% of this visit. Objective - Vital Signs Vital signs: Vital Signs Temp 96.8 F L 05/07/22 03:40 Pulse 80 05/07/22 08:11 Resp 20 05/07/22 03:40 BP 158/97 05/07/22 03:40 Pulse Ox 96 05/07/22 03:43 FiO2 40 05/07/22 03:43 Intake & Output 05/06/22 05/07/22 05/07/22 18:59 06:59 18:59 Intake Total 118 Output Total 350 Balance -232 Intake: Oral 118 Output: Urine 350 Other: Voiding Method Bedside Commode Bedside Commode # Voids 2 # Bowel Movements 1 2 - Labs CBC & Chem 7: 05/06/22 07:05 05/06/22 07:05 Labs: Abnormal Lab Results - Last 24 Hours (Table) 05/06/22 05/06/22 05/06/22 Range/Units 11:25 16:23 20:29 POC Glucose (mg/dL) 127 H 173 H 143 H (70-110) mg/dL 05/07/22 Range/Units 06:02 POC Glucose (mg/dL) 139 H (70-110) mg/dL Microbiology - Last 24 Hours (Table) 05/03/22 18:00 Blood Culture - Preliminary Blood No Growth after 72 hours Assessment and Plan Time with Patient: Less than 30
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
[2022-05-07 17:03] LABS: Glucose,Whole Blood 163 mg/dL (70-110)
[2022-05-07 20:02] LABS: Glucose,Whole Blood 133 mg/dL (70-110)
[2022-05-07] MEDS: ATORVASTATIN 20 MG TAB PO SCH (20:23)
[2022-05-07] MEDS: METOPROLOL SUCCINATE (ER) 25 MG TAB.ER.24H PO SCH (20:23)
[2022-05-08] MEDS: IPRATROPIUM-ALBUTEROL 3 ML NEB INHALATION SCH ×6 (00:33→20:45)
[2022-05-08 06:01] LABS: Glucose,Whole Blood 115 mg/dL (70-110)
[2022-05-08] MEDS: INSULIN ASPART (NovoLOG) 100 UNIT/ML VIAL SQ SCH ×4 (06:11→19:47)
[2022-05-08] MEDS: methylPREDNISolone SOD SUCCI 125 MG/2 ML VIAL IV SCH (06:14)
[2022-05-08] MEDS: DOXYCYCLINE 100 MG CAP PO SCH ×2 (08:43→20:13)
[2022-05-08] MEDS: METOPROLOL SUCCINATE (ER) 50 MG TAB.ER.24H PO SCH ×2 (08:43→20:13)
[2022-05-08] MEDS: lisinopriL 10 MG TAB PO SCH (08:44)
[2022-05-08] MEDS: NICOTINE 14MG/24HR PATCH TRANSDERM SCH (08:44)
[2022-05-08] MEDS: FAMOTIDINE 20 MG/2 ML VIAL IV SCH (08:44)
[2022-05-08] MEDS: APIXABAN 5 MG TAB PO SCH ×2 (08:44→20:12)
[2022-05-08] MEDS: SYMBICORT 160-4.5 MCG INHALER INHALATION SCH ×2 (08:53→20:45)
[2022-05-08 11:40] LABS: Glucose,Whole Blood 103 mg/dL (70-110)
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
--- NOTE | 2022-05-08 12:40 | P.PN ---
Subjective Progress Note Date: 05/08/22 Patient seen today resting comfortably in bed in no signs of acute distress doing well. Denies increased shortness of breath, chest pain or pressure. She remains in atrial fibrillation on the monitor. Heart rate in the high 90s and low 100s. Blood pressure is stable. Will increase Toprol-XL to 50mg twice a day Objective - Vital Signs Vital signs: Vital Signs Temp 98.0 F 05/08/22 11:53 Pulse 92 05/08/22 11:53 Resp 20 05/08/22 11:53 BP 140/79 05/08/22 11:53 Pulse Ox 92 L 05/08/22 11:53 FiO2 40 05/08/22 04:25 Intake & Output 05/07/22 05/08/22 05/08/22 18:59 06:59 18:59 Intake Total 960 118 Output Total 200 Balance 760 118 Intake: Oral 960 118 Output: Urine 200 Other: Voiding Method Bedside Commode Toilet # Voids 1 2 # Bowel Movements 1 - Exam VITAL SIGNS: Reviewed. GENERAL: Well-developed in no acute distress. HEENT: Head is normocephalic. Pupils are equal, round. Sclerae anicteric. Mucous membranes of the mouth are moist. Neck supple. No JVD or thyromegaly LUNGS: Respirations even and unlabored. Lungs diminished with mild expiratory wheezing HEART: Irregular rate and rhythm. S1 and S2 heard. ABDOMEN: Soft. Nondistended. Nontender. EXTREMITIES: Normal range of motion. No clubbing or cyanosis. Peripheral pulses intact. No lower extremity edema NEUROLOGIC: Awake and alert. Oriented x 3. - Labs CBC & Chem 7: 05/06/22 07:05 05/06/22 07:05 Labs: Abnormal Lab Results - Last 24 Hours (Table) 05/07/22 05/07/22 05/08/22 Range/Units 16:58 20:01 06:00 POC Glucose (mg/dL) 163 H 133 H 115 H (70-110) mg/dL Microbiology - Last 24 Hours (Table) 05/03/22 18:00 Blood Culture - Preliminary Blood No Growth after 96 hours Assessment and Plan Assessment: Shortness of breath Acute COPD exacerbation Atrial fibrillation with RVR, unclear if paroxysmal or persistent, suspect persistent Hypertension Hyperlipidemia Nicotine dependence Plan: Increase Toprol XL to 50 mg twice a day Continue current cardiac medications Continue telemetry monitoring Patient is stable from a cardiac standpoint Further recommendations pending patient's course Nurse practitioner note has been reviewed by physician. Signing provider agrees with the documented findings, assessment, and plan of care.
[2022-05-08] MEDS: predniSONE 20 MG TAB PO SCH (16:09)
[2022-05-08 16:38] LABS: Glucose,Whole Blood 129 mg/dL (70-110)
[2022-05-08 19:47] LABS: Glucose,Whole Blood 146 mg/dL (70-110)
[2022-05-08] MEDS: ATORVASTATIN 20 MG TAB PO SCH (20:12)
[2022-05-08] MEDS: FAMOTIDINE 20 MG TAB PO SCH (20:12)
[2022-05-09] MEDS: IPRATROPIUM-ALBUTEROL 3 ML NEB INHALATION SCH ×5 (00:19→15:11)
[2022-05-09 06:20] LABS: Glucose,Whole Blood 109 mg/dL (70-110)
[2022-05-09] MEDS: INSULIN ASPART (NovoLOG) 100 UNIT/ML VIAL SQ SCH ×3 (06:24→16:58)
[2022-05-09] MEDS: SYMBICORT 160-4.5 MCG INHALER INHALATION SCH (08:46)
[2022-05-09] MEDS: APIXABAN 5 MG TAB PO SCH (09:02)
[2022-05-09] MEDS: lisinopriL 10 MG TAB PO SCH (09:02)
[2022-05-09] MEDS: DOXYCYCLINE 100 MG CAP PO SCH (09:02)
[2022-05-09] MEDS: NICOTINE 14MG/24HR PATCH TRANSDERM SCH (09:02)
[2022-05-09] MEDS: METOPROLOL SUCCINATE (ER) 50 MG TAB.ER.24H PO SCH (09:02)
[2022-05-09] MEDS: predniSONE 20 MG TAB PO SCH (09:02)
[2022-05-09] MEDS: FAMOTIDINE 20 MG TAB PO SCH (09:02)
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
[2022-05-09 11:59] LABS: Glucose,Whole Blood 94 mg/dL (70-110)
[2022-05-09 12:01] VITALS: RESP 20
--- NOTE | 2022-05-09 13:21 | P.PN ---
Subjective Progress Note Date: 05/09/22 HISTORY OF PRESENT ILLNESS: This is a 71-year-old female with a past medical history significant for COPD, hypertension, hyperlipidemia, and atrial fibrillation. Patient follows with a Dr. Calzada in [place]. We have been asked to see the patient in consultation for A. fib with RVR. Patient examined at the bedside. Patient presented to the hospital the chief complaint of shortness of breath. She is admitted to the hospital secondary to COPD exacerbation. Upon admission, the patient was found to be in A. fib with RVR. The patient was placed on a IV Cardizem drip. This m orning the patient remains in atrial fibrillation with controlled ventricular rates. Her Cardizem drip has been discontinued. She denies chest pain or pressure. She continues to report shortness of breath this morning. * EKG reveals A. fib with RVR * Chest xray right lower lobe airspace opacities could represent atelectasis versus developing pneumonia. * Laboratory data: WBC 6.9. Hemoglobin 17.4. Platelet count 152. Indium 141. Potassium 4.4. BUN 20. Creatinine 1.21. Troponin 0.074. 0.073. 0.047. ProBNP 496. * Current home cardiac medications include Eliquis 5mg BID, Lasix 40 mg daily, amlodipine 5 mg daily, metoprolol succinate 50 mg in the morning and 25 mg at night, lisinopril 40 mg daily, and simvastatin 40mg at HS 05/05/2022 Patient examined this morning at the bedside. Patient denies chest pain or pressure. She denies shortness breath. Telemetry reveals atrial fibrillation with controlled ventricular rate. Vital signs are stable. 2-D echo is cu rrently pending. 05/06/2022 Patient examined this morning at the bedside. Patient denies chest pain or pressure. She denies shortness breath. Telemetry reveals atrial fibrillation with controlled ventricular rate. Vital signs are stable. 2-D echo is currently pending. 05/09 Yesterday, Toprol-XL was increased to 50 mg twice daily. Echocardiogram revealed technically difficult study, normal LV size and function, mild mitral and tricuspid insufficiency. PHYSICAL EXAM: VITAL SIGNS: Reviewed. GENERAL: Well-developed in no acute distress. HEENT: Head is normocephalic. Pupils are equal, round. Sclerae anicteric. Mucous membranes of the mouth are moist. Neck supple. No JVD or thyromegaly LUNGS: Respirations even and unlabored. Lungs diminished with mild expiratory wheezing HEART: Irregular rate and rhythm. S1 and S2 heard. ABDOMEN: Soft. Nondistended. Nontender. EXTREMITIES: Normal range of motion. No clubbing or cyanosis. Peripheral pulses intact. No lower extremity edema NEUROLOGIC: Awake and alert. Oriented x 3. ASSESSMENT: Shortness of breath Acute COPD exacerbation Atrial fibrillation with RVR, unclear if paroxysmal or persistent, suspect persistent Hypertension Hyperlipidemia Nicotine dependence PLAN: Continue current cardiac medications Continue increased dose of Toprol-XL 50 mg twice daily Patient is stable from a cardiac standpoint and cleared for discharge. Nurse practitioner note has been reviewed by physician. Signing provider agrees with the documented findings, assessment, and plan of care. Objective - Vital Signs Vital signs: Vital Signs Temp 97.5 F L 05/09/22 04:15 Pulse 88 05/09/22 04:15 Resp 21 05/09/22 04:15 BP 159/86 05/09/22 04:15 Pulse Ox 94 L 05/09/22 04:15 FiO2 40 05/09/22 04:15 Intake & Output 05/08/22 05/09/22 05/09/22 18:59 06:59 18:59 Intake Total 716 240 Balance 716 240 Intake: Oral 716 240 Other: Voiding Method Toilet Toilet # Voids 2 1 - Labs CBC & Chem 7: 05/06/22 07:05 05/06/22 07:05 Labs: Abnormal Lab Results - Last 24 Hours (Table) 05/08/22 05/08/22 Range/Units 16:36 19:46 POC Glucose (mg/dL) 129 H 146 H (70-110) mg/dL Microbiology - Last 24 Hours (Table) 05/03/22 18:00 Blood Culture - Preliminary Blood No Growth after 120 hours
[2022-05-09 14:04] VITALS: BMI 42.5
[2022-05-09 15:42] VITALS: BP 147/83; PULSE 102; TEMP 97.6
--- NOTE | 2022-05-11 15:15 | P.DS ---
Providers Date of admission: 05/03/22 20:40 Expected date of discharge: 05/09/22 Attending physician: Kael Holland Consults: 05/03/22 20:35 Consult Physician Routine Consulting Provider: Norma James Consult Reason/Comments: copd, resp failure Do you want consulting provider notified?: Yes Consult Physician Routine Consulting Provider: Erik Garcias Consult Reason/Comments: a-fib with RVR Do you want consulting provider notified?: Yes Primary care physician: Dariel Garces [facility] Course: Final diagnosis -Acute hypoxic and hypercapnic respiratory failure secondary to COPD exacerbation requiring BiPAP -Atrial fibrillation with rapid ventricular rate, presently rate controlled, probably has persistent A. fib -Mildly elevated troponin secondary to atrial fibrillation and COPD exacerbation -Possible acute renal failure secondary to diuretics. Improved -Hyperlipidemia -Hypertension -Continued ongoing nicotine abuse -DVT prophylaxis -GI prophylaxis Discharge disposition Patient is being discharged in a stable condition with guarded prognosis to home. Patient will follow-up with Ирина Rojas NP in the outpatient setting upon discharge. Patient is to also follow-up with cardiology along with pulmonary in the outpatient setting as scheduled. He should continue on doxycycline for 1 week to complete the course along with a prednisone taper and continue duo nebs and inhalers. Total time taken is greater than 35 minutes. Hospital course This is a 71-year-old female who was recently admitted with increased shortness of breath and was immediately placed on BiPAP and also found to be in atrial fibrillation with RVR new onset. Patient normally does not wear any oxygen in the outpatient setting although continues to smoke. Patient was weaned as tolerated with slow progression showing some improvement and was also continued on IV Cardizem with cardiology following closely. Patient currently rate controlled on metoprolol and will continue with oral anticoagulant. Patient is requiring oxygen on discharge via 3 L nasal cannula and this is being arranged to manage her COPD. Patient strongly encouraged to continue to avoid tobacco u se and exposure. Patient was week although seen and evaluated by physical therapy recommending home with home care. Patient has been cleared by cardiology and pulmonary edema like to go home today. Currently no reports of chest pain, shortness of breath, or palpitations. Patient is afebrile. No reports of nausea or vomiting and patient is tolerating diet. Patient will be discharged home today. Guarded prognosis Physical exam: Gen: This is a 71-year-old female who is awake, alert and oriented 3, well- developed, well-nourished, morbidly obese HEENT: Head is atraumatic, normocephalic. Pupils equal, round. Sclerae is anicteric. NECK: Supple. No JVD. No lymphadenopathy. No thyromegaly. LUNGS: Diminished breath sounds bilaterally with some scattered rhonchi. Faint expiratory wheezing noted No intercostal retractions. HEART: S1, S2 are muffled ABDOMEN: Soft. Bowel sounds are present. No masses. No tenderness. EXTREMITIES: No pedal edema. No calf tenderness. NEUROLOGICAL: Patient is awake, alert and oriented x3. Cranial nerves 2 through 12 are grossly intact. Please refer to medication reconciliation sheet for a list of medications. The impression and plan of care has been dictated by Jory Márquez, Nurse Practitioner as directed. Dr. Amalia MD I have performed a history and examination and MDM of this patient, discussed the same with the dictator, and agree with the dictator's assessment and plan as written ,documented as a scribe. Based on total visit time, I have performed more than 50% of the visit. Patient Condition at Discharge: Fair Plan - Discharge Summary Discharge Rx Participant: No New Discharge Prescriptions: New Ipratropium-Albuterol Nebulize [Duoneb 0.5 mg-3 mg/3 ml Soln] 3 ml INHALATION RT-Q4H 30 Days #100 each Metoprolol Succinate (ER) [Toprol XL] 50 mg PO BID 30 Days #60 tab Acetaminophen Tab [Tylenol] 650 mg PO Q4HR PRN tab PRN Reason: Mild Pain Or Fever > 100.5 Doxycycline [Vibramycin] 100 mg PO BID 7 Days #14 cap lisinopriL [Zestril] 10 mg PO DAILY 30 Days #30 tab Nicotine 14Mg/24Hr Patch [Habitrol] 1 patch TRANSDERM DAILY #30 patch predniSONE 10 mg PO DIRECTED #30 tab Budesonide-Formot 160-4.5 Mcg [Symbicort 160-4.5 Mcg Inhaler] 2 puff INHALATION RT-BID 30 Days #1 each Continue Simvastatin [Zocor] 40 mg PO HS Albuterol Sulfate [Ventolin HFA] 2 puff INHALATION RT-Q4H PRN PRN Reason: Shortness Of Breath amLODIPine [Norvasc] 5 mg PO DAILY Apixaban [Eliquis] 5 mg PO BID Discontinued Metoprolol Succinate (ER) [Toprol Xl] 50 mg PO DAILY Metoprolol Succinate [Metoprolol Succinate ER] 25 mg PO HS Furosemide [Lasix] 40 mg PO DAILY lisinopriL 40 mg PO DAILY Discharge Medication List Albuterol Sulfate [Ventolin HFA] 2 puff INHALATION RT-Q4H PRN 05/03/22 [History] Apixaban [Eliquis] 5 mg PO BID 05/03/22 [History] Simvastatin [Zocor] 40 mg PO HS 05/03/22 [History] amLODIPine [Norvasc] 5 mg PO DAILY 05/03/22 [History] Acetaminophen Tab [Tylenol] 650 mg PO Q4HR PRN tab 05/09/22 [Rx] Budesonide-Formot 160-4.5 Mcg [Symbicort 160-4.5 Mcg Inhaler] 2 puff INHALATION RT-BID 30 Days #1 each 05/09/22 [Rx] Doxycycline [Vibramycin] 100 mg PO BID 7 Days #14 cap 05/09/22 [Rx] Ipratropium-Albuterol Nebulize [Duoneb 0.5 mg-3 mg/3 ml Soln] 3 ml INHALATION RT-Q4H 30 Days #100 each 05/09/22 [Rx] Metoprolol Succinate (ER) [Toprol XL] 50 mg PO BID 30 Days #60 tab 05/09/22 [Rx] Nicotine 14Mg/24Hr Patch [Habitrol] 1 patch TRANSDERM DAILY #30 patch 05/09/22 [Rx] lisinopriL [Zestril] 10 mg PO DAILY 30 Days #30 tab 05/09/22 [Rx] predniSONE 10 mg PO DIRECTED #30 tab 05/09/22 [Rx] Follow up Appointment(s)/Referral(s): Ирина Rojas NPC [REFERRING] - 05/12/22 1:30 pm Erik Garcias MD [STAFF PHYSICIAN] - 2 Weeks (Office to call with appointment once they have your records.) [facility] Visiting Nurse, [NON-STAFF] - Patient Instructions/Handouts: A-fib (Atrial Fibrillation) (DC), How to Stop Smoking (DC), COPD (Chronic Obstructive Pulmonary Disease) (DC) Activity/Diet/Wound Care/Special Instructions: Activity Limited until follow-up Follow-up with cardiology outpatient Follow-up pulmonary this week outpatient Continue with oxygen at 3 L Avoid tobacco use and exposure Discharge Disposition: HOME WITH HOME HEALTH SERVICES
== END 2022-05-09 17:23 | disposition home health service (06) | DRG 189 ==
LOC: EC 17:06 → 3SCARD 20:40
PROVIDERS: ADMIT Internal Medicine; ATTEND Internal Medicine
PROC: 5A09357 Assistance with Respiratory Ventilation, Less than 24 Consecutive Hours, Continuous Positive Airway Pressure (ICD-10-PCS; principal; 2022-05-03)
DX: J96.01 Acute respiratory failure with hypoxia (principal); J44.1 Chronic obstructive pulmonary disease with (acute) exacerbation; J98.11 Atelectasis; I48.92 Unspecified atrial flutter; I48.19 Other persistent atrial fibrillation; Z68.41 Body mass index [BMI] 40.0-44.9, adult; J96.02 Acute respiratory failure with hypercapnia; L30.9 Dermatitis, unspecified; K76.0 Fatty (change of) liver, not elsewhere classified; I50.9 Heart failure, unspecified; I25.10 Atherosclerotic heart disease of native coronary artery without angina pectoris; I11.0 Hypertensive heart disease with heart failure; I08.1 Rheumatic disorders of both mitral and tricuspid valves; F17.210 Nicotine dependence, cigarettes, uncomplicated; E78.5 Hyperlipidemia, unspecified; Z20.822 Contact with and (suspected) exposure to COVID-19; Z87.01 Personal history of pneumonia (recurrent); E66.9 Obesity, unspecified; T50.2X5A Adverse effect of carbonic-anhydrase inhibitors, benzothiadiazides and other diuretics, initial encounter; R77.8 Other specified abnormalities of plasma proteins
CPT/HCPCS: 36415; 36600; 71045; 71275; 80048; 80053; 80061; 82805; 83605; 83880; 84145; 84484; 85025; 85027; 85610; 85730; 87040; 87636; 93005; 93306; 94640; 94660; 94760; 96365; 96366; 96367; 96375; 99291

== ENCOUNTER → 2023-10-09 | Outpatient (CLI) | payer MEDICARE, OTHER ==
[2023-10-09 14:33] LABS: Basophils # (A) 0.04 X 10*3/uL (0.00-0.10); Basophils % (A) 0.4 %; Eosinophils # (A) 0.21 X 10*3/uL (0.04-0.35); Eosinophils % (A) 2.3 %; HCT 49.4 % (37.2-46.3); HGB 15.6 g/dL (12.0-15.0); Lymphocytes # (A) 1.91 X 10*3/uL (0.90-5.00); Lymphocytes % (A) 21.2 %; MCH 30.6 pg (27.0-32.0); MCHC 31.6 g/dL (32.0-37.0); MCV 97.1 FL (80.0-97.0); Mean Platelet Volume 10.1 FL (9.5-12.2); Monocytes # (A) 0.89 X 10*3/uL (0.20-1.00); Monocytes % (A) 9.9 %; NRBC Per 100 WBC 0 X 10*3/uL (0.00-0.01); Neutrophils % (A) 65.8 %; Platelet Count 275 X 10*3/uL (140-440); RBC 5.09 X 10*6/uL (4.10-5.20); RDW 13.7 % (11.5-14.5); WBC 8.99 X 10*3/uL (4.50-10.00)
[2023-10-09 14:58] LABS: ALT 20 U/L (8-44); AST 18 U/L (13-35); Albumin 4.3 g/dL (3.8-4.9); Albumin/Globulin Ratio 1.65 Ratio (1.60-3.17); Alkaline Phosphatase 93 U/L (41-126); BUN/Creat Ratio 15.33 Ratio (12.00-20.00); Bilirubin, Conjugated 0.24 mg/dL (0.20-0.40); Bilirubin,Unconjugated 0.46 mg/dL (0.20-1.00); Blood Urea Nitrogen 13.8 mg/dL (9.0-27.0); Calcium 10.3 mg/dL (8.7-10.3); Carbon Dioxide 20.9 mmol/L (21.6-31.8); Chloride 106 mmol/L (96-109); Chol/HDL Ratio 2.35 Ratio; Globulin 2.6 g/dL (1.6-3.3); Glucose 83 mg/dL (70-110); LDL Cholesterol,Calculated 47.8 mg/dL (0.0-131.0); Sodium 142 mmol/L (135-145); T4, Free (Free Thyroxine) 1.45 ng/dL (0.80-1.80); Total Bilirubin 0.7 mg/dL (0.3-1.2); Total Protein 6.9 g/dL (6.2-8.2)
== END | disposition home or self-care (01) ==
LOC: LABWHC1 09:14
PROVIDERS: ATTEND Nurse Practitioner Family
DX: I10 Essential (primary) hypertension (principal)
CPT/HCPCS: 36415; 80048; 80061; 80076; 84439; 84443; 85025

== ENCOUNTER → 2024-07-10 | Outpatient (CLI) | payer MEDICARE, OTHER ==
[2024-07-10 16:01] LABS: ALT 22 U/L (8-44); AST 22 U/L (13-35); Chol/HDL Ratio 2.85 Ratio; LDL Cholesterol,Calculated 54.5 mg/dL (0.0-131.0)
== END | disposition home or self-care (01) ==
LOC: LABWHC1 09:45
PROVIDERS: ATTEND Internal Medicine Cardiovascular Disease
DX: E78.2 Mixed hyperlipidemia (principal)
CPT/HCPCS: 36415; 80061; 84450; 84460

== ENCOUNTER → 2024-10-21 | Outpatient (CLI) | payer MEDICARE, OTHER ==
--- NOTE | 2024-10-21 11:55 | CTL ---
EXAMINATION TYPE: CT Low Dose Lung DATE OF EXAM: 10/21/2024 10:54 AM COMPARISON: None. CLINICAL INDICATION: Female, 74 years old with history of Z12.2, F17.210 NICOTINE DEPENDENCE, CIGARET ISAEL, UN, Current smoker, 1PPD x50yrs., History of tobacco use. TECHNIQUE: Low Dose CT Lung Screening, Low dose computed tomography scan was performed through the ch est at 1 millimeter thick sections and reconstructed images in the coronal plane at 1 mm thick sectio ns. IV CONTRAST USED: None. SCREENING VISIT: First visit CT DLP: 110 mGycm, Automated exposure control for dose reduction was used. CT CTDI: 3.98 mGy FINDINGS: CT DIAGNOSTIC QUALITY: Satisfactory LUNG NODULES: Not presentLeft lung: no nodules identified.Right lung: no nodules identified. LUNGS: COPD: Severity: None Fibrosis: Severity:None Lymph nodes: None Other findings: None RIGHT PLEURAL SPACE: Effusion: None Calcification: None Thickening: None Pneumothorax: None LEFT PLEURAL SPACE: Effusion: None Calcification: None Thickening: None Pneumothorax: None HEART: * Size within normal limits. * No significant coronary artery calcifications. OTHER FINDINGS: Upper abdomen: No significant abnormality Bony thorax: Degenerative changes Supraclavicular region: No significant abnormalityOther: No significant abnormalityI IMPRESSION: 1. No clinically significant pulmonary nodules. 2. Mild emphysema. CT LUNG RAD AND CT CHEST RECOMMENDATION: Lung-Rad 1 Negative: Continue annual screening with LDCT in 12 months. S Modifier (other clinically significant findings): [facility], , 10/21/2024 11:52 AM
== END | disposition home or self-care (01) ==
LOC: RADCTMAIN 10:33
PROVIDERS: ATTEND Internal Medicine Critical Care Medicine
DX: Z12.2 Encounter for screening for malignant neoplasm of respiratory organs (principal); F17.210 Nicotine dependence, cigarettes, uncomplicated; J43.9 Emphysema, unspecified
CPT/HCPCS: 71271